=== PATIENT | male | born 1950 | race Hispanic/Latino ===

== ENCOUNTER → 2018-07-14 | Day surgery (SDC) | payer MEDICARE ==
[2018-07-12 14:04] LABS: BASOPHILS % 0.7 % (0.0-1.0); EOSINOPHILS % 0.7 % (0.0-6.0); HEMOGLOBIN 15.2 g/dL (14.0-18.0); LYMPHOCYTES # (AUTO) 2.5 (1.0-3.2); LYMPHOCYTES % 45.5 % (18.0-39.1); MEAN CORPUSCULAR HEMOGLOBIN 33.9 pg (28-32); MEAN CORPUSCULAR HGB CONC 34.5 g/dL (31-35); MEAN CORPUSCULAR VOLUME 98.2 fL (81-99); MONOCYTES # (AUTO) 0.6 (0.2-0.8); MONOCYTES % 10.4 % (4.4-11.3); NEUTROPHILS # (AUTO) 2.3 (2.1-6.9); NEUTROPHILS % 42.7 % (38.7-80.0); PLATELET COUNT 163 x10e3/uL (140-360); RED BLOOD COUNT 4.48 x10e6/uL (4.3-5.7); RED CELL DISTRIBUTION WIDTH 12.4 % (11.7-14.4)
[2018-07-12 14:29] LABS: ALANINE AMINOTRANSFERASE 54 IU/L (0-55); ALBUMIN 3.7 g/dL (3.5-5.0); ALBUMIN/GLOBULIN RATIO 0.7 (0.8-2.0); ALKALINE PHOSPHATASE 104 IU/L (40-150); ANION GAP 14.4 mmol/L (8-16); BLOOD UREA NITROGEN 9 mg/dL (7-26); BUN/CREATININE RATIO 11 (6-25); CALCIUM 8.8 mg/dL (8.4-10.2); CARBON DIOXIDE 22 mmol/L (22-29); CHLORIDE 98 mmol/L (98-107); CREATININE, SERUM 0.79 mg/dL (0.72-1.25); EST GLOMERULAR FILTRATION RATE > 60 ML/MIN (60-); GLUCOSE 103 mg/dL (74-118); POTASSIUM 4.4 mmol/L (3.5-5.1); SODIUM 130 mmol/L (136-145)
--- NOTE | 2018-07-12 16:04 | Diagnostic Imaging Report ---
EXAMINATION: CHEST 2 VIEWS INDICATION: Pre-admit. COMPARISON: None FINDINGS: TUBES and LINES: None. LUNGS: Lungs are well inflated. Lungs are clear. There is no evidence of pneumonia or pulmonary edema. PLEURA: No pleural effusion or pneumothorax. HEART AND MEDIASTINUM: The cardiac silhouette is unremarkable. There is prominence of the inferior mediastinum. BONES AND SOFT TISSUES: No acute osseous abnormality. UPPER ABDOMEN: No free air under the diaphragm. IMPRESSION: No acute radiographic abnormality. Suspected either tortuous and ectatic descending thoracic aorta or hiatal hernia. This can be correlated clinically. Signed by: Dr. Romain Herrmann MD on 07/12/2018 4:00 PM
[~2018-07-14] MED LIST: BUPIVACAINE 0.25% 30ML SDV INJ ONE; BUPIVACAINE 0.25%/EPI 30ML SDV INJ ONE; DEXAMETHASONE SOD PHOS INJ 4 MG/ML VIAL ONE; FENTANYL CITRATE/PF 100MCG/2 ML INJ ONE; HYDROCODONE/APAP 7.5MG-325MG 1 EA TAB ONE; KETOROLAC TROMETHAMINE 30 MG/ML VIAL ONE; LIDOCAINE HCL 2% LOCAL INJ 5 ML SDV VIAL INJ ONE; LISINOPRIL10 MG PO; MIDAZOLAM HCL 2 MG/2 ML VIAL ONE; ONDANSETRON HCL INJ 2MG/ML 2ML 2 MG/ML VIAL ONE; PROPOFOL IV EMULSION 10 MG/ML 20 ML VIAL ONE; ROCURONIUM BROMIDE 10 MG/ML 5ML VIAL ONE; SEVOFLURANE INHAL SOLN 250 ML PEN BTL ONE; SUCCINYLCHOLINE 200 MG/10 ML SYR ONE
--- OUTSIDE RECORDS SUMMARY | 2018-07-14 05:57 | XMS REPORT | Encounter Summary ---
Author Organization Unknown Address [address] [place] [address] Phone [phone] Care Team Providers Care Sports Director Name Role Phone Dr. Praful Reynoso 3 [phone] Reason for Visit Hypertensive disorder; headaches Instructions 1. Headache tizanidine 4 mg tablet 2. Hypertensive disorder 3. Depression screening learning about depression 4. Body mass index 25-29 - overweight learning about healthy weight Discussion Note: None recorded. Plan of Care Reminders Provider Appointments Est Patient 07/10/2018 1:45PM Praful Mccray MD Est Patient 11/06/2018 11:15AM Praful Mccray MD Lab None recorded. Referral None recorded. Procedures None recorded. Surgeries None recorded. Imaging None recorded. Medications Name Start Date lisinopril 20 mg tablet TAKE 1 TABLET EVERY DAY BY ORAL ROUTE DIRECTED FOR 90 DAYS. tizanidine 4 mg tablet Take 1 tablet as needed by oral route at bedtime for 14 days. Medications Administered None recorded. Vitals Height Weight BMI Blood Pressure 5 ft 7 in 182 lbs 28.5 kg/m2 (1) 140/90 mm[Hg] (2) 140/88 mm[Hg] Lab Results None recorded. Allergies Code Code System Name Reaction Severity Status Onset NKDA Problems Name Status Onset Date Source Thrombocytopenic Disorder Active 06/09/2017 Alcohol Abuse Active 06/09/2017 Hypertensive Disorder Active 06/09/2017 Steatosis of Liver Active 06/09/2017 Procedures Date Name Performed by 02/02/2017 Egd Information not available Hernia Repair Information not available 05/31/2018 CT, Neck, W/wo Contrast [facility] [address] [place], [place] [id number] (Work Place) 06/02/2018 CT, Neck, Soft Tissue, W/wo Contrast [facility] [address] [place] [address] (Work Place) Vaccine List Vaccine Type pneumococcal conjugate PCV 13 06/09/20170.5 mL Social History Smoking Status Never Smoker Past Encounters 06/21/2018 Headache; Hypertensive Disorder; Depression Screening; Body Mass Index 25-29 - Overweight Praful Mccray MD: [address] [place] [address], Ph. 05/31/2018 Mass of Neck; Mass of Subcutaneous Tissue of Back; Body Mass Index 25-29 - Overweight; Immunization Praful Mccray MD: [address] [place] [address], Ph. History of Present Illness Note:Complaining of daily headaches since 1 week ago. Located on the forehead, radiated to the occipital area. Throbbing type. Lasts 2-3 hrs. Intensity: 3/10. Concomitantly, sonophobia. Denies photophobia, nausea, neuro deficits, runny nose or nasal congestion. Review of Systems:ROS as noted in the HPI Review of Systems None recorded. Physical Exam General Adult Exam (male) Reported By: Patient Constitutional: General Appearance: healthy-appearing. Level of Distress: NAD Psychiatric: Insight: good judgement. Mental Status: active and alert, normal mood, normal affect. Orientation: to time, to place, to person. Memory: recent memory normal, remote memory normal Head: Head: normocephalic, atraumatic Eyes: Lids and Conjunctivae: non-injected, no discharge. EOM: EOMI ENMT: Ears: TMs clear. Nose: no sinus tenderness. Lips, Teeth, and Gums: no mouth or lip ulcers. Oropharynx: moist mucous membranes Neck: Neck: supple, trachea midline. Thyroid: no enlargement, non-tender Lungs: Auscultation: breath sounds normal Cardiovascular: Heart Auscultation: RRR, normal S1, normal S2, no murmurs. Neck vessels: no carotid bruits. Pulses including femoral / pedal: normal throughout Musculoskeletal:: Motor Strength and Tone: normal, normal tone. Joints, Bones, and Muscles: normal movement of all extremities. Extremities: no edema Neurologic: Gait and Station: normal gait. Cranial Nerves: grossly intact. Sensation: grossly intact. Reflexes: DTRs 2+ bilaterally throughout. Coordination and Cerebellum: [id number] intact, no tremor Skin: Inspection and palpation: no rash, no lesions
--- OUTSIDE RECORDS SUMMARY | 2018-07-14 05:57 | XMS REPORT | Encounter Summary ---
Author Organization Unknown Address [address] [place] [address] Phone [phone] Care Team Providers Care Data Processing Specialist Name Role Phone Dr. Praful Reynoso 3 [phone] Reason for Visit other - see typed reason Instructions 1. Mass of neck CT, neck, w/wo contrast 2. Mass of subcutaneous tissue of back general surgery referral - Please schedule & contact our patient. thank you. 3. Body mass index 25-29 - overweight learning about healthy weight 4. Immunization Discussion Note: None recorded. Plan of Care Reminders Provider Appointments Est Patient 11/06/2018 11:15AM Praful Mccray MD Lab None recorded. Referral General Surgery Referral 05/31/2018 Mendez Cortez MD Procedures None recorded. Surgeries None recorded. Imaging CT, Neck, W/wo Contrast 05/31/2018 [facility] Medications Name Start Date lisinopril 20 mg tablet TAKE 1 TABLET EVERY DAY BY ORAL ROUTE DIRECTED FOR 90 DAYS. Medications Administered None recorded. Vitals Height Weight BMI Blood Pressure 5 ft 7 in 181.8 lbs 28.5 kg/m2 140/90 mm[Hg] Lab Results Date Name Specimen Result Interpretation Description Value Range Status Address 05/12/2018 Fecal Occult Blood, Stool Fecal Globin (Medicare) by Immunochemistry not detected Final [facility]: [address] 05/09/2018 CMP, Serum or Plasma Alt 48 U/L 0-55 U/L Final [facility]: [address] High Ast 72 U/L 5-34 U/L Final [facility]: [address] Low Bun 8.0 mg/dL 8.4-25.7 mg/dL Final [facility]: [address] Alk Phos 103 unit/L 40-150 unit/L Final [facility]: [address] High Glucose 103 mg/dL 70-99 mg/dL Final [facility]: [address] [facility] Albumin 3.7 g/dL 3.5-5.0 g/dL Final [facility]: [address] Rendon, [place] Creatinine 0.78 mg/dL 0.72-1.25 mg/dL Final [facility]: [address] Maddie Trinh [facility], [place] eGFR Non- >60 mL/min/1.73m2 Final [facility]: [address] [facility] High Total Bilirubin 2.0 mg/dL 0.2-1.2 mg/dL Final [facility]: [address] Maddie Trinh [facility], [place] eGFR - >60 mL/min/1.73m2 Final [facility]: [address] Rendon, [place] Low Sodium 132 mEq/L 136-145 mEq/L Final [facility]: [address] Trinh [address] [place] [address] Potassium 4.3 mEq/L 3.5-5.1 mEq/L Final [facility]: [address] Velas[address] Chloride 99 mmol/L 98-107 mmol/L Final [facility]: [address] Trinh [address] [place] [address] High Total Protein 8.7 g/dL 6.4-8.3 g/dL Final [facility]: [address] [facility] [facility] Calcium 9.3 mg/dL 8.8-10.0 mg/dL Final [facility]: [address] [facility] [facility] Co2 25.3 mmol/L 23.0-31.0 mmol/L Final [facility]: [address] Trinh [address] [place] [address] Anion Gap 8 calc Final [facility]: [address] Rendon [place] 05/09/2018 Lipid Panel, Serum Hdl 41 mg/dL 40-60 mg/dL Final [facility]: [address] Velasquez Ziggy Rojelio, [place] Triglyceride 117 mg/dL 0-149 mg/dL Final [facility]: [address] Maddie Trinh [facility], [place] VLDL Calc. 23 mg/dL Final [facility]: [address] Raymondtruman [facility] cholesterol/HDL Ratio 4.5 mg/dL Final [facility]: [address] non-HDL Cholesterol Calc. 145 mg/dL 0-160 mg/dL Final [facility]: [address] Cholesterol 186 mg/dL 0-199 mg/dL Final [facility]: [address] LDL Calc. 122 mg/dL 0-130 mg/dL Final [facility]: [address] [place] [address] 05/09/2018 PSA, Serum or Plasma PSA, Total 0.82 NG/mL 0.00-4.00 NG/mL Final [facility]: [address] Allergies Code Code System Name Reaction Severity Status Onset NKDA Problems Name Status Onset Date Source Thrombocytopenic Disorder Active 06/09/2017 Alcohol Abuse Active 06/09/2017 Hypertensive Disorder Active 06/09/2017 Steatosis of Liver Active 06/09/2017 Procedures Date Name Performed by 02/02/2017 Egd Information not available Hernia Repair Information not available 05/31/2018 CT, Neck, W/wo Contrast [facility] [address] [place], [place] [phone] (Work Place) Vaccine List Vaccine Type pneumococcal conjugate PCV 13 06/09/20170.5 mL Social History Smoking Status Never Smoker Past Encounters 05/31/2018 Mass of Neck; Mass of Subcutaneous Tissue of Back; Body Mass Index 25-29 - Overweight; Immunization Praful Mccray MD: [address] [place] [address], Ph. 05/09/2018 Adult Health Examination; Body Mass Index 25-29 - Overweight; Hypertensive Disorder; Advance Directive Discussed with Patient; Depression Screening; Screening for Malignant Neoplasm of Colon; Alcohol Consumption Screening; Thrombocytopenic Disorder; Immunization; Elevated Liver Enzymes Level; Screening for Malignant Neoplasm of Prostate; At Risk for Falls Praful Mccray MD: [address] [place] [address], Ph. History of Present Illness Note:Mass in the L side of the neck since 5 days ago. Non tender. Not known triggers. Denies fever, runny nose, nasal congestion, sore throat or fever.<div> Lump in the thoracic back since several years ago. Non tender. Not known trigger s. Getting progressively bigger.</div> Review of Systems:ROS as noted in the HPI Review of Systems None recorded. Physical Exam General Adult Exam (male) Reported By: Patient Constitutional: General Appearance: healthy-appearing, overweight. Level of Distress: NAD. Ambulation: ambulating normally Eyes: Lids and Conjunctivae: non-injected, no discharge. EOM: EOMI ENMT: Ears: TMs clear. Nose: no sinus tenderness. Lips, Teeth, and Gums: no mouth or lip ulcers. Oropharynx: moist mucous membranes Neck: Neck: supple, trachea midline; Mass in the L side of the neck, 6 cms in diameter approximately, soft, mobile, non tender. Lymph Nodes: no cervical LAD, no supraclavicular LAD, no axillary LAD. Thyroid: no enlargement, non-tender Lungs: Auscultation: breath sounds normal Cardiovascular: Heart Auscultation: RRR, normal S1, normal S2, no murmurs Musculoskeletal:: Motor Strength and Tone: normal, normal tone. Joints, Bones, and Muscles: normal movement of all extremities. Extremities: no edema Neurologic: Gait and Station: normal gait Skin: Inspection and palpation: ; Mass in the thoracic back, 6 cms in diameter approximately, soft, mobile, non tender
--- OUTSIDE RECORDS SUMMARY | 2018-07-14 05:57 | XMS REPORT | Continuity of Care Document ---
Author Author [facility] Address Unknown Phone Unavailable Problems Problem Status Onset Date Classification Date Reported Comments Source Acute frontal sinusitis, unspecified 06/02/2017 09/03/2017 [facility] Acute frontal sinusitis 05/28/2017 09/03/2017 [facility] HEADACHE HYPERTENSION Active 05/28/2017 [facility] Essential hypertension 09/03/2017 [facility] Nicotine dependence, cigarettes, uncomplicated 09/03/2017 [facility] Cirrhosis Resolved Problem 09/03/2017 [facility] Hypertension Resolved Problem 09/03/2017 [facility] Medications Medication Details Route Status Patient Instructions Ordering Provider Order Date Source tramadol hydrochloride 50 MG Oral Tablet [Ultram] 50 mg=1 tab, PO, Q4H, PRN pain, X 3 day, # 20 tab, 0 Refill(s) No Longer Active 05/29/2017 [facility] Amoxicillin 875 MG / Clavulanate 125 MG Oral Tablet [Augmentin 875-mg] 875 mg=1 tab, PO, BID, X 10 day, # 20 tab, 0 Refill(s) No Longer Active 05/29/2017 [facility] tramadol hydrochloride 50 MG Oral Tablet [Ultram] 50 mg, 1 tab, Route: PO, Drug form: TAB, ONCE, Dosing Weight 72.727, kg, Priority: STAT, Start date: 05/28/17 19:15:00 MUSEUM CURATOR, Stop date: 05/28/17 19:15:00 CSTNotes: Not to exceed 400mg/day. (Same As: Ultram) Inactive 05/29/2017 [facility] Allergies, Adverse Reactions, Alerts Substance Category Reaction Severity Reaction type Status Date Reported Comments Source Immunizations Immunization Date Given Site Status Last Updated Comments Source Results Order Name Results Value Reference Range Date Interpretation Comments Source Brain wo contrast CT Brain wo contrast CT Clinical Indication: - headache Comparison: None TECHNIQUE: CT images were obtained from the foramen magnum to the vertex without the use of intravenous contrast on a multidetector CT. Coronal and sagittal reconstructions were obtained. CT radiation dose DLP: 980 mGy-cm FINDINGS: BRAIN PARENCHYMA: There are normal soares-white interfaces, sulci and gyri. There are no focal mass lesions on this noncontrast head CT. There is no mass effect, midline shift or edema. There are no intra-axial or extra-axial fluid collections, intraventricular or intraparenchymal hemorrhage. The pineal, sellar, brainstem, cerebellum and skull base regions appear unremarkable. VENTRICLES: The lateral ventricles, third and fourth ventricles appear unremarkable. The basilar cisterns are normal. ORBITS, MASTOIDS AND PARANASAL SINUSES: The visualized orbits are unremarkable. There is opacity in the right maxillary and ethmoid sinuses and an air-fluid level in the right frontal sinus. There is thickening of the wall of the anterior right maxillary sinus. The mastoid air cells are clear. SKULL: There are no osseous abnormalities. There is no soft tissue swelling noted. If there is further concern for intracranial pathology or acute stroke, MRI of the brain may be performed for complete assessment. IMPRESSION: Unremarkable noncontrast head CT with no mass, hemorrhage or subacute stroke. Acute on chronic right maxillary, ethmoid, and frontal sinusitis. SL: [id number] 05/28/2017 - - Read by: Kristopher Reyes MD Dictated Date/time: 05/28/17 18:21 Electronically Signed by: Kristopher Reyes MD 05/28/17 18:29 FINAL REPORT [facility] Vital Signs Vital Sign Value Date Comments Source Temperature Oral (F) 97.3 F 05/29/2017 [facility] Systolic (mm Hg) 144 05/29/2017 [facility] Diastolic (mm Hg) 90 05/29/2017 [facility] Heart Rate 74 05/29/2017 [facility] Respitory Rate 18 05/29/2017 [facility] Height 167.64 cm 05/28/2017 [facility] BMI Calculated 25.88 05/28/2017 [facility] Weight 72.727 05/28/2017 [facility] Temperature Oral (F) 96.8 F 05/28/2017 [facility] Respitory Rate 18 05/28/2017 [facility] Systolic (mm Hg) 152 05/28/2017 [facility] Diastolic (mm Hg) 88 05/28/2017 [facility] Heart Rate 77 05/28/2017 [facility] Encounters Location Location Details Encounter Type Encounter Number Reason For Visit Attending Provider ADM Date DC Date Status Source [facility] [id number] Lindseytruman Benavides 05/28/2017 05/29/2017 [facility] Procedures Procedure Code Date Perfomer Comments Source Hernia repair [id number] SUSIE Martinez
--- OUTSIDE RECORDS SUMMARY | 2018-07-14 05:57 | XMS REPORT ---
Author Author [facility] Address Unknown Phone Unavailable Care Team Providers Care Medical Laboratory Manager Name Role Phone Joaquim WADE Unavailable Unavailable Problems This patient has no known problems. Allergies, Adverse Reactions, Alerts This patient has no known allergies or adverse reactions. Medications This patient has no known medications. Results Test Description Test Time Test Comments Text Results Atomic Results Result Comments CHEST 2 VIEWS 2018-07-12 15:57:00 [place] [address] Patient Name: TAMEKA HILLIARD MR #: [id number] : 1950 Age/Sex: 68/M Req #: [id number] Adm Physician: Ordered by: REBECCA WADE MD Report #: [id number] Location: OR Room/Bed: Procedure: [id number] DX/CHEST 2 VIEWS Exam Date: 07/12/18 Exam Time: 1400 REPORT STATUS: Signed EXAMINATION: CHEST 2 VIEWS INDICATION: Pre-admit. COMPARISON: None FINDINGS: TUBES and LINES: None. LUNGS: Lungs are well inflated. Lungs are clear. There is no evidence of pneumonia or pulmonary edema. PLEURA: No pleural effusion or pneumothorax. HEART AND MEDIASTINUM: The cardiac silhouette is unremarkable. There is prominence of the inferior mediastinum. BONES AND SOFT TISSUES: No acute osseous abnormality. UPPER ABDOMEN: No free air under the diaphragm. IMPRESSION: No acute radiographic abnormality. Suspected either tortuous and ectatic descending thoracic aorta or hiatal hernia. This can be correlated clinically. Signed by: Dr. Ruiz Mejía MD on 07/12/2018 4:00 PM Dictated By: RUIZ MEJÍA MD 99 Transcribed By: FERNANDO on 07/12/181599 COPY TO: REBECCA WADE MD
--- OUTSIDE RECORDS SUMMARY | 2018-07-14 05:57 | XMS REPORT | Summary of Care ---
Author Author [facility] Organization [facility] Address Unknown Phone Unavailable Encounter HQ Katerine(FIN) [id number] Date(s): 05/28/17 - 05/28/17 [facility] [address] [place], [place] [address]- [phone] Encounter Diagnosis Acute frontal sinusitis (Discharge Diagnosis) - 05/28/17 Acute frontal sinusitis, unspecified (Final) - 06/01/17 Essential (primary) hypertension (Final) - Nicotine dependence, cigarettes, uncomplicated (Final) - Discharge Disposition: Home or Self Care Attending Physician: Lindsey Benavides MD Vital Signs Most recent to 1 2 oldest [Reference Range]: Height 167.64 cm (05/28/17 4:20 PM) Temperature Oral 97.3 DegF 96.8 DegF [96.4-99.1 DegF] (05/28/17 7:23 PM) (05/28/17 4:20 PM) Blood Pressure 144/90 mmHg 152/88 mmHg [90-140/60-90 mmHg] *HI* *HI* (05/28/17 7:23 PM) (05/28/17 4:20 PM) Respiratory Rate 18 BRMIN 18 BRMIN [14-20 BRMIN] (05/28/17 7:23 PM) (05/28/17 4:20 PM) Peripheral Pulse 74 bpm 77 bpm Rate [60-100 bpm] (05/28/17 7:23 PM) (05/28/17 4:20 PM) Weight 72.727 kg (05/28/17 4:20 PM) Body Mass Index 25.88 m2 (05/28/17 4:20 PM) Problem List Condition Effective Dates Status Health Status Informant Cirrhosis(Confirmed) Resolved Hypertension(Confirm Resolved ed) Allergies, Adverse Reactions, Alerts Substance Reaction Severity Status NKDA Active Medications Augmentin 875 mg oral tablet 875 mg=1 tab, PO, BID, X 10 day, # 20 tab, 0 Refill(s) Start Date: 05/28/17 Stop Date: 06/07/17 Status: Completed Ultram 50 mg oral tablet 50 mg, 1 tab, Route: PO, Drug form: TAB, ONCE, Dosing Weight 72.727, kg, Priorit y: STAT, Start date: 05/28/17 19:15:00 NNPS, Stop date: 05/28/17 19:15:00 NNPS Notes: Not to exceed 400mg/day. (Same As: Ultram) Start Date: 05/28/17 Stop Date: 05/28/17 Status: Completed Ultram 50 mg oral tablet 50 mg=1 tab, PO, Q4H, PRN pain, X 3 day, # 20 tab, 0 Refill(s) Start Date: 05/28/17 Stop Date: 05/31/17 Status: Completed Results No data available for this section Immunizations No data available for this section Procedures Procedure Date Related Diagnosis Body Site Status Hernia repair Completed Social History Social History Type Response Smoking Status Former smoker; Exposure to Tobacco Smoke None; Cigarette Smoking Last 365 Days Yes; Reg Smoking Cessation Counseling Yes entered on: 05/28/17 Assessment and Plan No data available for this section
[2018-07-14 11:10] VITALS: BP 135/84
--- NOTE | 2018-07-14 17:01 | Operative Report ---
DATE OF PROCEDURE: 07/14/2018 SURGEON: Mendez Cortez MD PREOPERATIVE DIAGNOSIS: Left subscapular mass. POSTOPERATIVE DIAGNOSIS: Left subscapular intramuscular mass. OPERATION PERFORMED: Resection of left subscapular intramuscular mass. ANESTHESIA: General. COMPLICATIONS: None. ESTIMATED BLOOD LOSS: Minimal. DESCRIPTION OF PROCEDURE: With the patient lying in bed in the lateral position under good general anesthesia, the back was prepped with Betadine solution and draped in the usual manner. The area overlying the mass in the left subscapular region was then infiltrated with 0.25% Marcaine with epinephrine. An incision was made, carried down through the subcutaneous tissue and immediately capsulated lipomatous mass was encountered, which was multilobulated with part of the mass in intramuscular and in the subscapular muscles. The mass was then slowly and carefully from all the surrounding structures and totally and completely resected and removed and sent for pathological examination. Deeper layers were then reapproximated with interrupted sutures of 3-0 Vicryl. The subcutaneous tissue was approximated with 3-0 Vicryl and the skin was closed with interrupted vertical mattress sutures of 3-0 silk. A dressing was applied. The sponge, lap, and needle count was correct. The patient tolerated the procedure well and returned to the recovery room in stable condition. Mendez Cortez MD JLR/MODL /[id number]
== END | disposition home or self-care (01) ==
LOC: OR 05:55
PROVIDERS: ATTEND Surgery
DX: D17.9 Benign lipomatous neoplasm, unspecified (principal); I10 Essential (primary) hypertension; Z01.810 Encounter for preprocedural cardiovascular examination; Z01.812 Encounter for preprocedural laboratory examination; Z01.818 Encounter for other preprocedural examination
CPT/HCPCS: 23073; 36415; 71046; 80053; 85025; 88304; 93005; J1100; J1885; J2001; J2250; J2405; J2704